=== PATIENT | male | born 1935 ===

== ENCOUNTER 2018-01-31 09:55 | Outpatient (CLI) | payer OTHER ==
[~2018-01-31] VITALS: Ht 177.8 cm; Wt 77.1 kg
== END 2018-01-31 10:15 | disposition home or self-care (01) ==
LOC: OFIC 805 09:55
DX: H90.3 Sensorineural hearing loss, bilateral (principal); H61.23 Impacted cerumen, bilateral; H60.8X3 Other otitis externa, bilateral

== ENCOUNTER 2018-02-14 09:08 | Outpatient (CLI) | payer OTHER ==
[~2018-02-14] VITALS: Ht 152.4 cm; Wt 77.1 kg
== END 2018-02-14 09:20 | disposition home or self-care (01) ==
LOC: OFIC 805 09:08
DX: H61.23 Impacted cerumen, bilateral (principal); H60.8X3 Other otitis externa, bilateral; H90.3 Sensorineural hearing loss, bilateral